=== PATIENT | male | born 1995 | race Asian ===

== ENCOUNTER 2017-11-04 22:56 | Emergency (ER) | payer SELFPAY ==
[~2017-11-04] VITALS: Ht 182.9 cm; Wt 74.8 kg
[2017-11-04 23:15] VITALS: BP 111/62
--- NOTE | 2017-11-04 23:20 | Emergency Room Report ---
History of Present Illness General Chief Complaint: Syncope Source: Patient Present Illness [facility] This is a 22-year-old male with no past medical history. He presents with chief complaint of head injury and syncope. Had a glass of wine tonight he was eating dinner. At the end of dinner, he was in goodbye to her friends and family. He was standing for about 45 minutes. He was walking outside the door and also he had a syncopal episode. He said he felt little dizzy before hand. Mom witnessed him "face planting" on the ground. Afterward he was able to get up but legs were weak. No palpitation, no diaphoresis. He sustained injury to his left lower lip and chin area. Never had this problem before. Allergies: Coded Allergies: No Known Allergies (Unverified , 11/04/17) Patient History Past Medical History: none, see triage record, old chart reviewed Past Surgical History: none Pertinent Family History: none Social History: Denies: smoking Immunizations: other Reviewed Nursing Documentation: PMH: Agreed, PSxH: Agreed Nursing Documentation-PMH Past Medical History: No Stated History Review of Systems Eye: Denies: eye pain, blurred vision ENT: Denies: ear pain, nose congestion, throat swelling Respiratory: Denies: cough, shortness of breath Cardiovascular: Denies: chest pain, palpitations Gastrointestinal: Denies: abdominal pain, diarrhea, nausea, vomiting Musculoskeletal: Denies: back pain, joint pain Skin: Denies: rash Neurological: Denies: headache, numbness Endocrine: Denies: increased thirst, increased urine Hematologic/Lymphatic: Denies: easy bruising All Other Systems: negative except mentioned in HPI Physical Exam Vital Signs Date Time Temp Pulse Resp B/P (MAP) Pulse Ox O2 Delivery O2 Flow Rate FiO2 11/04/17 22:59 97.9 69 18 111/62 98 Room Air vitals normal Sp02 EP Interpretation: reviewed, normal General Appearance: well appearing, no apparent distress, alert Head: normocephalic, other - Abrasion to left chin area. Eyes: bilateral eye PERRL, bilateral eye EOMI ENT: hearing grossly normal, normal pharynx, other - Left lower lip laceration. Chin laceration. Neck: full range of motion, supple, no meningismus Respiratory: chest non-tender, lungs clear, normal breath sounds Cardiovascular #1: regular rate, rhythm, no murmur Gastrointestinal: normal bowel sounds, non tender, no mass, no organomegaly, no bruit, non-distended Musculoskeletal: back normal, gait/station normal, normal range of motion Psychiatric: mood/affect normal Skin: warm/dry Procedures Laceration/Wound Repair Laceration/Wound Repair : Consent: Verbal Wound Location: face Wound's Depth, Shape: into muscle, irregular, contused tissue Wound Length (cm): 4 Wound Explored: clean Irrigated w/ Saline (ccs): 500 Anesthesia: 1% Lidocaine Volume Anesthetic (ccs): 4 Wound Debrided: minimal Wound Repaired With: sutures Suture Size/Type: 5:0, other - Chromic Number of Sutures: 8 Patient Tolerated: Well Complications: None Progress Lip laceration measured to centimeter, chest or she measured to centimeter with a total 4 cm. Total of 8 interrupted 5-0 chromic suture placed. Patient tolerated seizure without a problem. Medical Decision Making Diagnostic Impression: Primary Impression: Syncope Qualified Codes: R55 - Syncope and collapse Additional Impressions: Lip laceration Qualified Codes: S01.511A - Laceration without foreign body of lip, initial encounter Chin laceration Qualified Codes: S01.81XA - Laceration without foreign body of other part of head, initial encounter Head injury, acute Qualified Codes: S09.90XA - Unspecified injury of head, initial encounter ER Course Patient with syncope and head injury. Also laceration to the lip and face. No evidence of any bleed or fracture. We'll discharge home. Lab Results Impression Labs normal EKG Diagnostic Results EKG Time: 00:52 Rate: normal Rhythm: NSR ST Segments: no acute changes Rhythm Strip Diag. Results Rhythm Strip Time: 00:52 EP Interpretation: yes Rate: 58 Rhythm: NSR, no PVC's, no ectopy CT/MRI/US Diagnostic Results CT/MRI/US Diagnostic Results : Imaging Test Ordered: CT head Impression read by radiologist. Negative. Last Vital Signs Date Time Temp Pulse Resp B/P (MAP) Pulse Ox O2 Delivery O2 Flow Rate FiO2 11/04/17 22:59 97.9 69 18 111/62 98 Room Air Status: improved Disposition: HOME, SELF-CARE Condition: Stable Scripts Ibuprofen* (MOTRIN*) 600 Mg Tablet 600 MG ORAL Q8H Y for For Pain, #30 TAB 0 Refills Prov: MARGARITA NI M.D. 11/05/17 Patient Instructions: Syncope Additional Instructions: Followup with your Dr. in 2-3 days if not better. Increase fluid. Return if worse. MARGARITA NI M.D. Nov 04, 2017 23:20
[2017-11-04 23:38] LABS: BASOPHILS % (AUTO) 1.3 % (0.0-2.0); EOSINOPHILS % (AUTO) 1.1 % (0.0-3.0); LYMPHOCYTES % (AUTO) 36.2 % (20.0-45.0); MEAN CORPUSCULAR HEMOGLOBIN 29.1 PG (27.0-31.0); MEAN CORPUSCULAR HGB CONC 31.6 G/DL (32.0-36.0); MEAN CORPUSCULAR VOLUME 92 FL (80-99); MEAN PLATELET VOLUME 6.6 FL (6.5-10.1); MONOCYTES % (AUTO) 6.2 % (1.0-10.0); NEUTROPHILS % (AUTO) 55.1 % (45.0-75.0); PLATELET COUNT 193 K/UL (150-450); RED BLOOD COUNT 4.98 M/UL (4.70-6.10); RED CELL DISTRIBUTION WIDTH 12.4 % (11.6-14.8); WHITE BLOOD COUNT 9.5 K/UL (4.8-10.8)
[2017-11-04 23:55] LABS: ANION GAP 5 mmol/L (5-15); CALCIUM 8.4 MG/DL (8.5-10.1); CARBON DIOXIDE 33 MMOL/L (21-32); CHLORIDE 105 MMOL/L (98-107); CREATININE 1.1 MG/DL (0.55-1.30); GLOMERULAR FILTRATION RATE > 60 mL/min (>60); POTASSIUM 4.1 MMOL/L (3.5-5.1); SODIUM 143 MMOL/L (136-145)
[2017-11-05 00:15] VITALS: BP 116/66
[2017-11-05] MEDS ORDERED: IBUPROFEN600 MG ORAL (00:53)
[2017-11-05 01:05] VITALS: BP 116/66
--- NOTE | 2017-11-05 10:06 | Diagnostic Imaging Report ---
Indication: Trauma Technique: Continuous helical CT scanning of the head was performed utilizing automated exposure control without intravenous contrast material. Axial and coronal reconstructions were obtained. Comparison: None CT dose: Total DLP 1453.5 mGycm; CTDI vol 70.38 mGy Findings: There is no acute intracranial hemorrhage, mass effect or cortical edema. Size and configuration of the ventricular system is within normal limits. The posterior fossa and fourth ventricle are unremarkable. Mucosal thickening noted within some bilateral mastoid air cells and sphenoid sinuses, with possible air-fluid level in the left sphenoid sinus. Mastoid air cells are clear. There is no depressed calvarial fracture. No focal soft tissue swelling/scalp hematoma identified. Impression: No evidence of acute intracranial hemorrhage, mass effect, midline shift or cortical edema. Sinus disease. This corresponds with the statrad preliminary report. The CT scanner at [facility] is accredited by the [employer] and the scans are performed using protocols designed to limit radiation exposure to as low as reasonably achievable to attain images of sufficient resolution adequate for diagnostic evaluation.
--- NOTE | 2017-11-06 15:02 | Cardiology Report ---
APPROVED REPORT EKG Measurement Heart [id number] Sinus bradycardia Rightward axis Borderline ECG
== END 2017-11-05 01:05 | disposition home or self-care (01) ==
LOC: EMR 23:11
DX: R55 Syncope and collapse (principal); S01.511A Laceration without foreign body of lip, initial encounter; S01.81XA Laceration without foreign body of other part of head, initial encounter; W19.XXXA Unspecified fall, initial encounter; Y92.009 Unspecified place in unspecified non-institutional (private) residence as the place of occurrence of the external cause; J32.9 Chronic sinusitis, unspecified
CPT/HCPCS: 12013; 36415; 70450; 80048; 85025; 93005; 96361; 96374; 99284; J2405